=== PATIENT | male | born 1990 | race Caucasian/White ===

== ENCOUNTER 2020-04-27 10:49 | Outpatient (REF) | payer OTHER, SELFPAY ==
[2020-04-27 19:03] LABS: Anion Gap 6.3 mmol/L (3-11); BUN 17 mg/dL (7-18); CO2 31.7 mmol/L (21.0-32.0); CREATININE 0.98 mg/dL (0.70-1.30); Calcium 9.2 mg/dL (8.5-10.1); Calculated LDL 115 mg/dL (<100); Chloride 103 mmol/L (98-107); Cholesterol 181 mg/dL (<200); Glucose 100 mg/dL (74-106); HDL Cholesterol 38 mg/dL (40-60); Potassium 4.6 mmol/L (3.5-5.1); Sodium 141 mmol/L (136-145); Triglyceride 142 mg/dL (<150)
== END 2020-04-27 11:09 ==
LOC: NCHCN 10:49
PROVIDERS: Visit Provider Physician Assistant
DX: Z00.00 Encounter for general adult medical examination without abnormal findings (principal); Z13.220 Encounter for screening for lipoid disorders; Z13.228 Encounter for screening for other metabolic disorders
CPT/HCPCS: 80048; 80061

== ENCOUNTER 2020-05-07 14:44 | Outpatient (REF) | payer OTHER, SELFPAY ==
[2020-05-10 03:47] LABS: Patient Race White; SARS-CoV-2 RNA Undetected (Undetected); SARS-CoV-2 Specimen Source Nasal
== END 2020-05-07 15:04 ==
LOC: NCHCN 14:44
PROVIDERS: Visit Provider Nurse Practitioner Family
DX: Z20.828 Contact with and (suspected) exposure to other viral communicable diseases (principal)
CPT/HCPCS: U0003

== ENCOUNTER 2022-09-15 16:47 | Outpatient (REF) | payer OTHER, SELFPAY ==
[2022-09-15 18:38] LABS: Anion Gap 7.8 mmol/L (3-11); BUN 18 mg/dL (7-18); CO2 30.2 mmol/L (21.0-32.0); Calcium 9.6 mg/dL (8.5-10.1); Chloride 103 mmol/L (98-107); Estimated GFR 102.55 (mL/min/1.73m2); Glucose 121 mg/dL (74-106); Potassium 4.1 mmol/L (3.5-5.1); Sodium 141 mmol/L (136-145)
== END 2022-09-15 16:48 | disposition home or self-care (01) ==
LOC: NCHCN 16:47
PROVIDERS: PCP Physician Assistant; Visit Provider Family Medicine
DX: R00.2 Palpitations (principal)
CPT/HCPCS: 80048; 84443

== ENCOUNTER 2022-09-21 13:36 | Outpatient (CLI) | payer OTHER, SELFPAY | END 2022-09-21 13:37 | disposition home or self-care (01) | PROVIDERS: PCP Physician Assistant; Visit Provider Family Medicine | DX: R00.2 Palpitations (principal) | CPT/HCPCS: 93270 ==

== ENCOUNTER 2022-10-26 08:40 | Outpatient (CLI) | payer OTHER, SELFPAY ==
--- NOTE | 2022-10-26 10:08 | W.CARDEVENT ---
Date of service: 10/26/22 Time of Service: 10:08 Cardiac Event Recorder Referring Provider:: Sandra Billy Indications:: Palpitations Cardiac Event Note: This is a 30-day cardiac event monitor. Patient was monitored for a total of 23 days and 23 hours Predominant rhythm was sinus with an average heart rate of 77. Minimum was 56, maximum 114 There were rare premature ventricular contractions. There was one 4 beat run of nonsustained ventricular tachycardia which occurred at 4 AM presumably during sleep There were no supraventricular dysrhythmias, no atrial fibrillation, no SVT There was no high-grade AV block or pauses greater than 3 seconds Patient's symptoms may have been corresponded to a PVC
== END 2022-10-26 08:41 | disposition home or self-care (01) ==
LOC: CARDOPNVT 08:40
PROVIDERS: PCP Physician Assistant; Visit Provider Internal Medicine Cardiovascular Disease
DX: R00.2 Palpitations (principal); I47.20 Ventricular tachycardia, unspecified
CPT/HCPCS: 93272

== ENCOUNTER 2023-03-27 17:25 | Emergency (ER) | payer BC, SELFPAY ==
[2023-03-27 17:29] VITALS: BP 160/96; PULSE 104; RESP 16; TEMP 36.9; O2SAT 98
[2023-03-27] MEDS: Tetracaine 0.5% 4 ML BTL OP (17:52)
[2023-03-27] MEDS: Fluorescein STRIPS 100/BOX 1 MG OP (17:52)
[2023-03-27] MEDS: Balanced Salt Solution 15 ML BTL OP (17:52)
--- NOTE | 2023-03-27 18:30 | ED.GENADUL_ITS ---
Discharge Plan Disposition Patient Disposition: Home Condition: Stable Discharge Details Clinical Impression: Acute allergic conjunctivitis of right eye Primary Care Provider: Toñito Rios ED Provider: Yesenia Monroy Home Meds and New Rx's Prescriptions: New cromolyn 4 % drops 1 drp ophthalmic (eye) QID 5 Days Qty: 10 0RF Rx Instructions: 1 drop into right eye 4 times a day while awake for the next 5 days No Action ibuprofen 600 MG tablet 600 mg PO TID Qty: 30 0RF tramadol 50 MG tablet 50 mg PO Q4H PRN PRN (Reason: Pain) Qty: 10 0RF Discharge Instructions Instructions: Erythromycin (Into the eye), Conjunctivitis (ED) Additional Instructions: At this time I do believe this is an allergic reaction of your eyes and lower eyelid. Please use the antibiotic ointment as directed 3 times a day while awake. I also did prescribe you a mast cell stabilizer eyedrops that will decrease the inflammation called cromolyn. You may also consider an [id number] antihistamine. If no improvement after the next couple of days please call [facility] to be seen. No evidence of increased eye pressure, no visualized foreign body or anything in your eye. No corneal abrasion noted. Please take Tylenol or Ibuprofen with food every 4-6 hours as needed for pain and swelling. You may apply a cool compress or washcloth to the eye. Try not to rub your eye. Referrals: [facility] [Outside] - 2 days Toñito Rios [Primary Care Provider] - 1 week Medical Decision Making 32-year-old male presents to the ER with chief complaint of right eye complaint. He reports cute onset of burning while outside prior to arrival. His eye became acutely swollen, he does have swelling noted to his lower eyelid he EOMs are intact. He does have some swelling noted to the lower conjunctiva. Visual acuity performed by chief of staff upon patient's arrival, patient states that he normally wears contact lenses and they are not in his eye at this time so he does have poor vision into his eye. He is unable to tell me if his vision is worse since this occurred. Optic pressure is 11.6, Gonzalez lamp exam performed tetracaine anesthesia drops instilled, fluorescein dye no uptake in dye noted no corneal abrasion noted. He does have some lower conjunctival chemosis noted and swelling. I do suspect allergic reaction with conjunctival can most this is due to pr uritus and swelling. Instructed to follow-up with [facility] care in the next couple of days if no improvement. Patient was given cromolyn eyedrops and erythromycin antibiotic ointment. Discussed cool compresses and home care. Please this text was generated using Vivaty dictation system, please disregard any oddities of phrase or misspellings. HPI General Mode of arrival: ambulatory . Date/Time Provider Initiated Documentation: 03/27/23 17:33 . Limitations to Documentation: no limitations . Information obtained by: patient, RN notes reviewed and old records reviewed . HPI Narrative: 32-year-old male presents to the ER with chief complaint of right eye complaint. He reports cute onset of burning while outside prior to arrival. His eye became acutely swollen, he does have swelling noted to his lower eyelid he EOMs are intact. He does have some swelling noted to the lower conjunctiva. Related Data Home Medications Medication Instructions Recorded Confirmed ibuprofen 600 mg tablet 600 mg PO TID #30 tabs 03/03/15 03/27/23 tramadol 50 mg tablet 50 mg PO Q4H PRN PRN Pain #10 tabs 03/03/15 03/27/23 cromolyn 4 % eye drops 1 drp ophthalmic (eye) QID 03/27/23 Allergic conjunctivitis 5 days #10 mL Previous Rx's Medication Instructions Recorded ibuprofen 600 mg tablet 600 mg PO TID #30 tabs 03/03/15 tramadol 50 mg tablet 50 mg PO Q4H PRN PRN Pain #10 tabs 03/03/15 cromolyn 4 % eye drops 1 drp ophthalmic (eye) QID 03/27/23 Allergic conjunctivitis 5 days #10 mL Allergies Allergy/AdvReac Type Severity Reaction Status Date / Time No Known Allergies Allergy Unverified 03/27/23 17:33 General Stated Complaint: EyeProblem SUMAN: 3 Review of Systems All systems reviewed & are unremarkable except as noted in HPI and below Constitutional Constitutional: Denies fever(s) and Denies headache(s) Eyes Eyes: Reports as per HPI, Denies diplopia, Denies eye discharge, Denies floa ters, Reports irritation, Reports itchy eyes, Denies loss of vision, Denies seeing flashes, Denies photophobia and Reports other (Swelling to lower eye) ENT Ears, Nose, Mouth, and Throat: Denies headache(s) and Reports other (Reports battling Sinus problem, not currently on antibiotics) Neurologic Neurologic: Denies headache(s) and Denies loss of vision Allergic/Immunologic Allergic/Immunologic: Reports itchy eyes PFSH All Active Problems (Updated 03/27/23 @ 19:32 by Yesenia Monroy NP) Acute allergic conjunctivitis of right eye (Acute) Phantosmia (Acute) Nasal congestion (Acute) Medical History Abdominal pain Acute pharyngitis Dyspepsia Exposure to COVID-19 virus Headache, unspecified Mass of stomach Social History Smoking/Tobacco Use Status: Former Tobacco Use Smoking risk assessment performed?: Yes Alcohol Intake: current Alcohol Intake frequency: 3 or more drinks per day Alcohol type: beer Drug use: Never Substance use type: does not use Do you feel safe at home: Yes Do you feel safe in your relationship?: Yes Exam Const General: cooperative, healthy appearing and comfortable Nutritional Appearance: average body habitus Orientation: alert, awake and oriented x3 [facility] Face images: 1. Swelling Eyes Alignment and Position: alignment normal Periorbital: periorbital findings abnormal right periorbital swelling (lower lid) Eyelids: eyelid abnormality right lower eyelid swelling Conjunctivae: conjunctival abnormality right conjunctival chemosis and conjunctival injection localized ([place]); without discharge Sclera: sclerae normal Cornea: corneas normal and fluorescein used Pupils: PERRL, normal by confrontation and accommodation normal EOM: EOM intact bilaterally Direct ophthalmoscopy: normal light reflex Other: No uptake in dye, no visualized foreign body, no corneal abrasion, Optic pressure 11.6 Eyes/upper lids images: 1. Conjunctival chemosis 2. Swelling Neuro General: patient alert, patient awake, patient oriented x3 and no meningeal signs Cranial Nerves: CN's II-XI intact bilaterally Cognition: normal cognition Speech: speech normal Course Vital Signs Vital signs: Vital Signs Temperature 36.9 C 03/27/23 17:29 Pulse 104 H 03/27/23 17:29 Respiratory Rate 16 03/27/23 17:29 Blood Pressure 160/96 H 03/27/23 17:29 Pulse Oximetry 98 09/12/23 17:29 Temperature 36.9 C 03/27/23 17:29 Temperature Source Temporal Artery Scan 03/27/23 17:29 Pulse 104 H 03/27/23 17:29 Respiratory Rate 16 03/27/23 17:29 Respiratory Effort Normal 03/27/23 17:32 Blood Pressure 160/96 H 03/27/23 17:29 Blood Pressure Position Sitting 03/27/23 17:29 Pulse Oximetry 98 03/27/23 17:29 Oxygen Delivery Method Room Air 03/27/23 17:29 Oxygen Flow Rate 0 03/27/23 17:29 Pain Level 4 03/27/23 17:29 PAWSS Have you Been Recently Intoxicated or Drunk Within the Last 30 days?: No Have you Ever Experienced Previous Episodes of Alcohol Withdrawal?: No Have you ever Experienced Withdrawal Seizures?: No Have you ever Experienced Delirium Tremens(DT)s?: No Have you ever undergone Alcohol Rehabilitation Treatment (i.e, inpt ot outpatient treatment programs)?: No Have you ever Experienced Blackouts?: No Have you ever Combined Alcohol with other Downers within the last 90 days?: No Have you ever Combined Alcohol with any other Substance of Abuse during the last 90 days?: No Result: 0
[2023-03-27] MEDS: Erythromycin Ophth Oint 3.5 GM TUBE OD (19:35)
== END 2023-03-27 19:39 | disposition home or self-care (01) ==
PROVIDERS: Emergency Provider Registered Nurse Emergency; PCP Physician Assistant
DX: H10.11 Acute atopic conjunctivitis, right eye (principal); Z87.891 Personal history of nicotine dependence
CPT/HCPCS: 99282

== ENCOUNTER → 2023-11-27 15:46 | Outpatient (CLI) | payer OTHER, SELFPAY ==
--- NOTE | 2023-11-27 12:15 | DI.RAD_ITS ---
Exam(s) XR SHOULDER RT COMPLETE 2+V EXAM: XR SHOULDER RT COMPLETE 2+V CLINICAL HISTORY: M25.511,G89.11,M54.2 persistent pain Rt shoulder, trauma, cervicalgia. TECHNIQUE: 2D digital imaging was performed. COMPARISON: No exams were available for comparison FINDINGS: Five views. No evidence of fracture or dislocation or abnormal soft tissue calcifications. Subacromial space aleksey ears unremarkable. No degenerative changes in the glenohumeral and AC joints. Bone density normal. No osseous lesions. Clavicle unremarkable. Coracoid process unremarkable. No os acromiale. IMPRESSION: No significant radiograph findings in the right shoulder. DATA REPOSITORY: RADIATION DOSE DELIVERED:
--- NOTE | 2023-11-27 12:15 | DI.RAD_ITS ---
Exam(s) XR CERVICAL SPINE COMP 4-5V EXAM: XR CERVICAL SPINE COMP 4-5V CLINICAL HISTORY: M25.511,G89.11,M54.2 persistent pain Rt shoulder, trauma, cervicalgia. TECHNIQUE: 2D digital imaging was performed. COMPARISON: No exams were available for comparison FINDINGS: Five views. No evidence of fracture, listhesis, nor offset of the spinal laminar line. All the disc spaces exhib it normal height. Facet joints unremarkable. On the oblique views there are no Luschka joint osteop hytes. There are no cervical ribs although the right transverse process of C7 appears slightly promi nent. Bone density normal. There is slight reversal of the curvature of the cervical spine noted wh ich is probably related to muscle spasm or positioning. IMPRESSION: Slightly prominent right transverse process of C7. May constitute a small right-sided cervical rib. No disc space narrowing. DATA REPOSITORY: RADIATION DOSE DELIVERED:
== END ==
PROVIDERS: PCP Physician Assistant; Visit Provider Nurse Practitioner Family
DX: M25.511 Pain in right shoulder (principal); G89.11 Acute pain due to trauma; M54.2 Cervicalgia
CPT/HCPCS: 72050; 73030

== ENCOUNTER → 2024-01-04 00:17 | Outpatient (CLI) | payer OTHER, SELFPAY ==
--- NOTE | 2024-01-04 07:45 | DI.MRI_ITS ---
Exam(s) MR UPPER JOINT RT WO EXAM: MR UPPER JOINT RT WO CLINICAL HISTORY: persistent pain, acute pain due to trauma, M25.511, G89.11. TECHNIQUE: Multiplanar multisequence MRI was performed. COMPARISON: Plain films December 06 FINDINGS: BONES: There is no fracture or contusion pattern. JOINTS:The acromioclavicular joint is normal. The glenohumeral joint is normal. TENDONS: Supraspinatus: Unremarkable. Infraspinatus: Unremarkable. Subscapularis: Unremarkable. Teres Minor: Unremarkable. Biceps and [place]: Unremarkable. MUSCLES: Unremarkable. GLENOID LABRUM: Unremarkable on this noncontrast examination. SOFT TISSUES: Unremarkable. OTHER: Subacromial and subdeltoid bursae shows no significant fluid. IMPRESSION: Unremarkable MRI of the shoulder. DATA REPOSITORY:
== END ==
PROVIDERS: PCP Physician Assistant; Visit Provider Nurse Practitioner Family
DX: M25.511 Pain in right shoulder (principal); G89.11 Acute pain due to trauma
CPT/HCPCS: 73221